=== PATIENT | female | born 1955 | race Caucasian/White ===

== ENCOUNTER → 2022-03-17 | Outpatient (CLI) | payer MEDICARE, BC ==
[2022-03-17 11:11] LABS: African American GFR (CKD) >90 (>60 ml/min/1.73 sqM); Blood Urea Nitrogen 17 mg/dL (7-17); Non-African American GFR(CKD) >90 (>60 ml/min/1.73 sqM)
--- NOTE | 2022-03-17 13:40 | CT ---
CT lumbar spine without contrast. HISTORY: Prior back surgery with recurrent back pain. COMPARISON: None. TECHNIQUE: Multiple axial images obtained from T12 to the sacrum without use of IV contrast material. FINDINGS: There are postsurgical changes of interdisc and posterior fusion of L4-5. There is a slight anterolis thesis of L4 and L5 and of L5 and S1. There are no lumbar spine fractures. There is mild disc space narrowing at the L3-4 and L5-S1 levels indicating mild degenerative disc dis ease. There are no large disc herniations although the evaluation for disc herniation is limited by this te chnique. Secondary to thickening of ligamentum flavum there is a mild spinal stenosis at the L3-4 level. There are postsurgical changes involving the sacrum and SI joints bilaterally. The paraspinal soft tissues are unremarkable. IMPRESSION: 1. Postsurgical changes involving the L4-5 level and bilateral sacrum and SI joints. 2. Slight anterolisthesis of L4-L5 and of L5 and S1. 3. Mild degenerative disease at the L3-4 and L5-S1 levels. 4. Mild spinal stenosis at the L3-4 level. 5. No large lumbar disc herniations.
--- NOTE | 2022-03-17 13:47 | CT ---
EXAMINATION TYPE: CT thor lumbar spine wo con DATE OF EXAM: 03/17/2022 COMPARISON: None HISTORY: Thoracic spondylosis CT DLP: 1045.40 mGycm Automated exposure control for dose reduction was used. Technique: Multiple axial images are obtained through the thoracic and lumbar spine without use of IV contrast material. Findings: The bony thoracic spinal canal is widely patent without evidence of stenosis. No large disc herniatio ns are seen. The paraspinal soft tissues are unremarkable. For evaluation of the lumbar spine, see the CT lumbar spine report with the same date.. Coronal and s agittal images were generated and reviewed. The thoracic vertebral segments are normal in height and alignment and there is no fracture or sublux ation. There is mild degenerative disease in the mid lower thoracic spine with mild disc space narrowing and spondylosis. In the epidural space at the T7-T9 level there is an electrical stimulator device.. IMPRESSION: MILD DEGENERATIVE DISC DISEASE THROUGHOUT THE MID AND LOWER THORACIC SPINE WITH NO OTHER SIGNIFICANT ABNORMALITY SEEN. FOR EVALUATION THE LUMBAR SPINE, SEE CT LUMBAR SPINE REPORT WITH THE SAME DATE.
== END | disposition home or self-care (01) ==
LOC: RADCTMAIN 10:24
PROVIDERS: ATTEND Psychiatry & Neurology Neurology
DX: M43.16 Spondylolisthesis, lumbar region (principal); M48.061 Spinal stenosis, lumbar region without neurogenic claudication; M47.816 Spondylosis without myelopathy or radiculopathy, lumbar region; M51.34 Other intervertebral disc degeneration, thoracic region; Z96.89 Presence of other specified functional implants
CPT/HCPCS: 82565; 84520; 72128; 72131; 72132; 36415; Q9967

== ENCOUNTER → 2023-08-17 | Outpatient (CLI) | payer MEDICARE, BC ==
--- NOTE | 2023-08-22 04:50 | SLS ---
SLEEP STUDY This is a home sleep study. HISTORY OF PRESENT ILLNESS: This is a 67-year-old female patient with known history of obstructive sleep apnea, who has been receiving APAP therapy over the years at a pressure of 5-20 cm of water utilizing an AirFit F20 full-face mask. The patient has lost around 30 to 35 pounds and she stopped using her CPAP machine for almost 2 months. Along with the weight loss, she was having some difficulty with the mask seal. A home sleep study was ordered to reevaluate the presence of obstructive sleep apnea and its severity and decide if ongoing treatment is needed. Note that her original study was done out of the [facility] out of [place], [place]. PERTINENT PHYSICAL FINDINGS: The patient's height is 5 feet 4 inches, weight is 137. TECHNICAL DESCRIPTION: The [employer] system was used to complete the home sleep study. This is a type 3 home sleep study. Total recording duration was 7 hours and 51 minutes. The study started at 12:22 a.m. and ended at 8:14 a.m. This was an adequate study as the patient had a total of 7 hours and 41 minutes of flow evaluation and 7 hours and 35 minutes of oxygen saturation evaluation. RESULTS: The respiratory analysis showed a total of 53 obstructive apneas and 108 obstructive hypopneas. The resulting AHI was 20.9. OXYGENATION ANALYSIS: The patient's baseline pulse ox was 92% while awake. Average pulse ox was 90%. Minimum pulse ox was 81% and the patient spent approximately 2 hours and 50 minutes of sleep time below pulse ox of 89%. CARDIAC SUMMARY: Average heart rate was 65, minimum heart rate was 55, maximum heart rate was 135. ASSESSMENT: 1. Obstructive sleep apnea, moderately severe with an AHI of 20.5. 2. Nocturnal oxygen desaturation with a minimum pulse ox of 81%. 3. Obesity with a history of weight loss. Current body mass index is 23.5. 4. Comorbidities including CAD, diabetes mellitus type 2, hypertension, hyperlipidemia, and bronchial asthma along with chronic anxiety disorder and acid reflux and osteoporosis. PLAN: We will discuss the findings with the patient. Obviously, the patient has residual obstructive sleep apnea, which is moderately severe. The patient has been encountering nocturnal oxygen saturation. I am recommending to continue her APAP treatment at the current settings of 5/20 cm of water. We may need to adjust the mask interface as the patient was not having a perfect seal due to her weight loss. My recommendation is to continue CPAP therapy and the patient will be seen and follow up. MARKL / IJN: [id number] /
== END ==
LOC: 3 N SLEEP 12:54
PROVIDERS: ATTEND Internal Medicine Critical Care Medicine
DX: G47.33 Obstructive sleep apnea (adult) (pediatric) (principal); G47.36 Sleep related hypoventilation in conditions classified elsewhere; E66.9 Obesity, unspecified; I25.10 Atherosclerotic heart disease of native coronary artery without angina pectoris; I10 Essential (primary) hypertension; E11.9 Type 2 diabetes mellitus without complications; F41.9 Anxiety disorder, unspecified; K21.9 Gastro-esophageal reflux disease without esophagitis; M81.0 Age-related osteoporosis without current pathological fracture; J45.909 Unspecified asthma, uncomplicated; E78.5 Hyperlipidemia, unspecified; Z68.23 Body mass index [BMI] 23.0-23.9, adult